=== PATIENT | male | born 1960 ===

== ENCOUNTER 2018-01-02 12:00 | Inpatient (IN) | payer OTHER ==
[~2018-01-02] VITALS: Ht 175.3 cm; Wt 89.4 kg
[2018-01-09] VITALS (16 sets, daily range): BP systolic 101–137; BP diastolic 53–80
[2018-01-09] MEDS ORDERED: EXFORGE 10-3201 EACH ORAL (06:08)
[2018-01-09] MEDS ORDERED: PANTOPRAZOLE SO40 MG ORAL (06:08)
[2018-01-09] MEDS ORDERED: CRESTOR10 M2 ORAL (06:08)
[2018-01-09] MEDS ORDERED: MELOXICAM15 MG PO (06:08)
[2018-01-09] MEDS ORDERED: LYRICA75 M1 ORAL (06:08)
[2018-01-09] MEDS ORDERED: BIKTARVY 50-201 EACH PO (06:08)
[2018-01-09] MEDS ORDERED: Midazolam 2mg/2ml Inj ONE ×2 (06:56→10:27)
[2018-01-09] MEDS ORDERED: fentaNYL 100 mcg/2 mL IV ONE (06:56)
[2018-01-09] MEDS ORDERED: Lidocaine 1% MPF 10mg/ml 5ml ONE (06:57)
[2018-01-09] MEDS ORDERED: Zemuron 50mg/5ml Inj IV ONE (07:05)
[2018-01-09] MEDS ORDERED: Succinylcholine 20mg/ml 10ml vial ONE (07:05)
--- NOTE | 2018-01-09 07:15 | Pre-Procedure Note/Attestation ---
Pre-Procedure Note/Attestation Complete Prior to Procedure Procedure Narrative: Artificial disc replacement C4/5 vs ACDF C4/5. Indications for Procedure Pre-Operative Diagnosis: stenosis C4/5 Attestation I attest that I discussed the nature of the procedure; its benefits; risks and complications; and alternatives (and the risks and benefits of such alternatives ), prior to the procedure, with the patient (or the patient's legal associate sales representative). I attest that, if there was a reasonable possibility of needing a blood transfusion, the patient (or the patient's legal associate sales representative) was given the [facility] standardized written summary, pursuant to the Atilio Kike Blood Safety Act ([place] Health and Safety Code # 1645, as amended). I attest that I re-evaluated the patient just prior to the surgery and that there has been no change in the patient's H&P, except as documented below:no changes. Tang Lord MD Jan 09, 2018 07:15
--- NOTE | 2018-01-09 07:16 | Brief Operative Note ---
Immediate Post Operative Note Operative Note Pre-op Diagnosis: stenosis C4/5 Procedure: ADR C4/5 with revision approach to spine anteriorly Post-op Diagnosis: same as preop Findings: consistent w/pre-op dx studies Surgeon: darian Assistant Site Manager: misha Anesthesiologist: Hawk FISCHER Anesthesia: general Specimen: yes Complications: none Condition: stable Fluids: per anesthesia Estimated Blood Loss: minimal Implant(s) used?: Yes - Tang Garzon MD Jan 09, 2018 07:16
[2018-01-09] MEDS ORDERED: Thrombin 5000 units spray kit TOPIC ONE (07:22)
[2018-01-09] MEDS ORDERED: Thrombin 5000 units TOPIC ONE (07:23)
[2018-01-09] MEDS ORDERED: Gelfoam Absorbable 1gm powder pkt TOPIC ONE (07:23)
[2018-01-09] MEDS ORDERED: Bacitracin 50000 Units Vial ONE (07:23)
[2018-01-09] MEDS ORDERED: Gelfoam Size TOPIC ONE (07:23)
[2018-01-09] MEDS ORDERED: Sterile Water For Irrig 2000ml IRRIG ONE (07:30)
[2018-01-09] MEDS ORDERED: NS Irrig 1000ml ONE (07:30)
[2018-01-09] MEDS ORDERED: Ketorolac 30mg Inj ONE (07:30)
[2018-01-09] MEDS ORDERED: LR 1000ml ONE (07:30)
[2018-01-09] MEDS ORDERED: Propofol 1,000mg/ 100ml btl IV ONE (07:30)
[2018-01-09] MEDS ORDERED: Neostigmine 1mg/ml 10ml Inj ONE (07:30)
[2018-01-09] MEDS ORDERED: Dexamethasone 4mg/ml vial ONE (08:13)
[2018-01-09] MEDS ORDERED: Morphine Sulfate 10mg/ml Inj ONE (08:20)
[2018-01-09] MEDS ORDERED: Sodium Chloride 10ml vial INJ ONE (08:22)
[2018-01-09] MEDS ORDERED: Phenylephrine 10mg/ml Vial ONE (08:27)
[2018-01-09] MEDS ORDERED: LR 1000ml 1,000 ML IVLG SCH (09:13)
--- NOTE | 2018-01-09 09:13 | Anethesia Preoperative Eval ---
Anesthesia Pre-op PMH/ROS General Date of Evaluation: Jan 09, 2018 Time of Evaluation: 07:20 Anesthesiologist: Hawk ASA Score: ASA 2 Mallampati Score Class I : Soft palate, uvula, fauces, pillars visible Class II: Soft palate, uvula, fauces visible Class III: Soft palate, base of uvula visible Class IV: Only hard plate visible Mallampati Classification: Class II Surgeon: Risa Diagnosis: Cervical radiculopathy Surgical Procedure: ACDF C4-C5 Anesthesia History: emergence delirium Family History: no anesthesia problems Allergies: Coded Allergies: MEPERIDINE (Verified Allergy, Severe, 01/08/18) PT GOES BERSERK-PULLS IV Uncoded Allergies: ANESTHESIA (Allergy, Severe, 01/08/18) PT GOES BERSERK-PULLS IV Medications: see eMAR Past Medical History Cardiovascular: Reports: HTN - stable on meds Pulmonary: Denies: asthma, COPD, RON, other Gastrointestinal/Genitourinary: Denies: GERD, CRI, ESRD, other Neurologic/Psychiatric: Reports: depression/anxiety, other - chronic pain; Denies: dementia, CVA, TIA Endocrine: Denies: DM, hypothyroidism, steroids, other HEENT: Denies: cataract (L), cataract (R), glaucoma, [place] (L), [place] (R), other Hematology/Immune: Denies: anemia, DVT, bleeding disorder, other Musculoskeletal/Integumentary: Denies: OA, RA, DJD, DDD, edema, other PMH Narrative: as above PSxH Narrative: Appendectomy, Lumbar spine, Cervical spine fusion Anesthesia Pre-op Phys. Exam Physician Exam Last Vital Signs Date Time Temp Pulse Resp B/P (MAP) Pulse Ox O2 Delivery O2 Flow Rate FiO2 01/09/18 06:02 98.0 73 20 119/62 (81) 97 98.0 01/09/18 05:49 Room Air Constitutional: NAD Neurologic: CN 2-12 intact Cardiovascular: RRR, no M/R/G Respiratory: CTA Gastrointestinal: S/NT/ND Airway Exam Mallampati Score: Class II MO: full Neck: stiff ROM: limited Teeth: intact Dentures: no upper, no lower Anesthesia Pre-op A/P Labs see chart Studies Pre-op Studies: EKG - NSR, CXR - WNL, echo - EF 55-60% Risk Assessment & Plan Assessment: ASA 2 Plan: GA with ETT neuromonitoring Status Change Before Surgery: No Pre-Antibiotics Drug: Ancef 2gr. Given Within 1 Hr of Incision: Yes Time Given: 08:10 Fili Arechiga MD Jan 09, 2018 09:13
[2018-01-09] MEDS ORDERED: fentaNYL 100 mcg/2 mL IV PRN (09:15)
[2018-01-09] MEDS ORDERED: Morphine Sulfate 2mg/ml Inj IVP PRN (09:15)
[2018-01-09] MEDS ORDERED: DiphenhydrAMINE 50mg/ml Inj IVP PRN (09:15)
[2018-01-09] MEDS ORDERED: Midazolam 2mg/2ml Inj IVP PRN (09:15)
[2018-01-09] MEDS ORDERED: Ketorolac 30mg Inj IV PRN (09:15)
[2018-01-09] MEDS ORDERED: Glycopyrrolate 0.2mg/ml 1ml Vial ONE (10:02)
[2018-01-09] MEDS ORDERED: Acetaminophen (Non formulary) 100 ML IV ONE (10:15)
[2018-01-09] MEDS ORDERED: Propofol 200mg/20ml IV ONE (10:37)
[2018-01-09] MEDS ORDERED: HYDROmorphone 1mg/ml Carpuject IVP PRN (11:00)
[2018-01-09] MEDS ORDERED: Norco 5mg/325mg tab ORAL PRN (11:00)
--- NOTE | 2018-01-09 11:53 | Immediate Post-Op Evaluation ---
Immediate Post-Op Evalulation Immediate Post-Op Evalulation Procedure: ACDF C4-C5 Date of Evaluation: Jan 09, 2018 Time of Evaluation: 11:46 IV Fluids: 1400 Blood Products: none Estimated Blood Loss: 100 Urinary Output: 500 Blood Pressure Systolic: 116 Blood Pressure Diastolic: 58 Pulse Rate: 78 Respiratory Rate: 24 O2 Sat by Pulse Oximetry: 96 Temperature (Fahrenheit): 98.5 Pain Score (1-10): 2 Nausea: No Vomiting: No Complications none Patient Status: reacts, patent, none Hydration Status: adequate Fili Arechiga MD Jan 09, 2018 11:53
[2018-01-09] MEDS ORDERED: Artificial Tears 1.4% Op Soln BOTH EYES PRN (12:45)
--- NOTE | 2018-01-09 12:57 | 48 Hour Post Anesthesia Eval ---
Post Anesthesia Evaluation Procedure: ACDF C4-C5 Date of Evaluation: Jan 09, 2018 Time of Evaluation: 12:55 Blood Pressure Systolic: 122 0: 68 Pulse Rate: 72 Respiratory Rate: 22 Temperature (Fahrenheit): 97.8 O2 Sat by Pulse Oximetry: 97 Airway: patent Nausea: No Vomiting: No Pain Intensity: 2 Hydration Status: adequate Cardiopulmonary Status: stable Mental Status/LOC: patient returned to baseline Follow-up Care/Observations: n/a Post-Anesthesia Complications: none Follow-up care needed: ready to discharge Fili Arechiga MD Jan 09, 2018 12:56
[2018-01-09] MEDS ORDERED: D5 1/2NS w/KCl 20mEq 1,000 ML IV SCH (14:00)
[2018-01-09] MEDS ORDERED: ceFAZolin sod 1 GM in D5W 55 ML IV SCH (16:00)
[2018-01-09] MEDS ORDERED: Docusate 100mg cap ORAL SCH (18:00)
--- NOTE | 2018-01-10 00:15 | Operative Note - Dictated ---
DATE OF OPERATION: 01/09/2018 PREOPERATIVE DIAGNOSES: 1. Adjacent segment spondylosis with aggravation. 2. C5 stenosis. 3. Cervical central canal stenosis C4-C5 with aggravation of stenosis. 4. Cervical radiculopathy. 5. Status post prior ACDF performed elsewhere C5-6 and C6-7. 6. Disc protrusion at C7-T1 and disc protrusion at C2-3. 7. More symptomatic level C4-5. POSTOPERATIVE DIAGNOSES: 1. Adjacent segment spondylosis with aggravation. 2. C5 stenosis. 3. Cervical central canal stenosis C4-C5 with aggravation of stenosis. 4. Cervical radiculopathy. 5. Status post prior ACDF performed elsewhere C5-6 and C6-7. 6. Disc protrusion at C7-T1 and disc protrusion at C2-3. 7. More symptomatic level C4-5. PROCEDURES PERFORMED: 1. Anterior cervical discectomy, decompression, foraminotomy, and disc replacement C4-5. 2. Interpretation of neuromonitoring. SURGEON: Tang Lord M.D. CANVAS SHRINKER: Dr. Gold . ANESTHESIOLOGIST: Fili Arechiga M.D. ANESTHESIA: General endotracheal combined anesthetic. Neuromonitoring utilized during surgery. IMPLANTS: Mobi-C artificial disc replacement. INTRAOPERATIVE FINDINGS: Significant stenosis noted with improvement in SSEPs in the left upper extremity as documented by the SSEP utility technician. Good fitment of artificial disc replacement C4-5. COMPLICATIONS: None. INDICATIONS FOR PROCEDURE: This is a pleasant gentleman with a significant injury to the cervical spine with history of prior spine surgery doing relatively well. The patient also had a spondylolisthesis in the lumbar spine, which will be addressed at another time. The patient is doing well and had a significant injury and had aggravation of his relatively stable cervical spondylosis at C4-5. The patient had increasing symptomatology and pain from the C4-5 level. MRIs were consistent with the patient's symptomatic complaints as well as objective orthopedic testing. Stenosis was noted left greater than right at C5 with mild central canal stenosis, however, significant lateral recess stenosis that was moderate to [id number] in nature on the left side especially. The patient was indicated for surgery after reasonable amount of conservative treatment had been tried by the patient. No guarantees of outcome were given. The patient was made aware of the alternatives to surgery as well as few types of surgery that I discussed including an ACDF versus an artificial disc replacement. The artificial disc replacement will be planned for and ACDF as a backup in case artificial disc replacement was not able to be fit into the disc space at C4-5. The patient was preoperatively medically optimized, taken to the operating room, and intubated by the anesthesiologist after positive identification and appropriate markings on the cervical spine. The patient was positioned supine with the cervical spine to be approached from the right side. A previous incision was on the right side that was going to be the same approach. Of note, this was a revision surgery and the exposure was riskier due to the previous surgery and a previously unoperated cervical spine anteriorly. However, with careful blunt dissection, I was able to expose the cervical spine carefully and obtain an excellent approach to the C4-5 level. The cervical spine baselines were obtained prior to positioning both motor and SSEPs, and subsequently after gentle cervical extension, baselines were obtained again. There was no change in baselines. Baseline demonstrated left upper extremity diminution. Once the post positioning baselines were obtained, the right side approach was planned. Markings were made on the cervical spine. Arms were tucked into proper position with all bony prominences well padded. was padded. Neuromonitoring was attached in upper and lower extremities. The neck was prepped and draped in usual sterile fashion. Subsequently, incision was made and skin was incised. Incision was on the right side. As mentioned, the interval of the omohyoid and sternocleidomastoid was identified, bluntly dissected with Metzenbaum scissors, and the scar tissue was identified and gently dissected with Kittner and Metzenbaum scissors. The carotid pulsation was normal. Visceral structures were contralaterally retracted. The prevertebral fascia was identified and pinned and subsequently exposed. The C4-5 level was identified, and using Bovie on low current, the longus colli was elevated medially and laterally and [place] pins as well as self-retaining retractors were placed. Extreme care was taken to maintain optimal midline positioned by taking multiple x-rays with a single [place] position in C4, and once this was satisfactorily judged to be in the midline, I placed a second [place] pin distractor at C5 and exposed the C4-5 level with direct visualization in the microscope. With microscope direct visualization and illumination, I performed a radical discectomy, removed endplate cartilage as well as shaved the contour of the posterior vertebral edges of C4 and C5 to be able to obtain a better fitment for the artificial disc replacement. PLL was resected. Generous foraminotomy was performed and the spinal cord was also decompressed. Left side was significantly worse than the right side as expected. There is a disc herniation that was caudally migrated just to the border of the C5 vertebral body. This was removed using Microsect micro curettes, and once this was performed, the dura was decompressed and foraminotomies were generously performed without moving excessive vertebral body and endplate to not compromise the integrity of the disc replacement. Multiple different trials were placed and care was taken to contour the uncovertebral joints as well as the endplate to accept the artificial disc replacement. This was tedious, and using careful carpentry, I was able to shave down the platform where disc replacement was to be placed and multiple different trials were used. The best fitment was a 5 mm height, 19 mm wide, and 15 mm deep artificial disc replacement and this was tried and subsequently the artificial disc replacement was implanted using direct visualization as well as radiographic images. Tried to be as careful as possible and as precise as possible trying to place the artificial disc replacement in perfect position and I tried to take care to adjudge perfect lateral of the cervical spine as well as the perfect anteroposterior view with Tinoco views. The artificial disc replacement was placed, tactile feedback was noted to have good fitment and on x-rays were in good position. The wound was copiously irrigated. Final x-rays were taken to assess for midline. Once this was satisfactorily adjudged, the [place] pins were gently compressed to increase fitment and prevent dislodgement of the artificial noel replacement and removed and wax was placed for hemostasis. Wound was copiously irrigated multiple times during the procedure. Subsequently, the wound was reapproximated using 3-0 Vicryl for the platysma, 4-0 Monocryl for the skin, as well as Steri-Strips. COMPLICATIONS: None. DISPOSITION: To recovery room in stable condition. Tang Lord M.D. DR: TONEY JOB#: [id number] CC:
--- NOTE | 2018-01-10 06:22 | Discharge Summary ---
Discharge Summary Discharge Summary _ DATE OF ADMISSION: 01/09/2018 DATE OF DISCHARGE: 01/09/2018 BRIEF HOSPITAL COURSE: Patient is a 57-year-old male, with significant injury to the cervical spine with history of prior surgery doing relatively well. Patient also had spondylolisthesis in the lumbar spine. He had significant injury and aggravation of a relatively stable cervical spondylolisthesis at C4-C5. He had increasing symptomatology and pain. MRI done were consistent with patient's symptomatic complaints as well as objective orthopedic testing. Stenosis was noted left greater than right at C5 with mild central canal stenosis, however, significant lateral recess stenosis that was moderate to severe in nature. He had tried a reasonable amount of conservative treatment, patient was indicated for surgery. He was admitted and underwent anterior cervical discectomy, decompression, foraminotomy and disc replacement on C4-C5. He tolerated procedure well and postoperatively was admitted for postop care. He was given IV hydration. He was given pain management. He was placed on MEAGAN hose and SCDs for DVT prophylaxis. He was encouraged use of incentive spirometry. Antunez catheter was discontinued. He underwent physical and occupational therapy. Diet was advanced. He was voiding well and ambulating well with good pain control. He was eventually discharged home. FINAL DIAGNOSES: Adjacent segment spondylosis with aggravation C5 stenosis Cervical central canal stenosis C4-C5 with aggravation of stenosis Cervical radiculopathy Status post prior ACDF performed elsewhere C5-C6 and C6-C7 Disc protrusion at C7-T1 and disc protrusion at C2-C3 More symptomatic level C4-C5 Status post anterior cervical discectomy, decompression, foraminotomy and disc replacement and C4-C5 DISPOSITION: Patient was discharged home. DISCHARGE MEDICATIONS: Refer to Discharge Medication List. To take ciprofloxacin by mouth as outpatient. DISCHARGE INSTRUCTIONS: Follow up in 1 to 2 weeks. I have been assigned to dictate discharge summary on this account, and I was not involved in the patient's management. Italia De La Cruz NP Jan 10, 2018 06:22
== END 2018-01-09 17:15 | disposition home or self-care (01) | DRG 518 ==
LOC: SDSOVERFLO 01-09 05:16 → 3E 01-09 13:00
PROC: 00NW0ZZ Release Cervical Spinal Cord, Open Approach (ICD-10-PCS; principal; 2018-01-09 07:30)
PROC: 0RR30JZ Replacement of Cervical Vertebral Disc with Synthetic Substitute, Open Approach (ICD-10-PCS; principal; 2018-01-09 07:30)
PROC: 01N10ZZ Release Cervical Nerve, Open Approach (ICD-10-PCS; principal; 2018-01-09 07:30)
DX: M50.11 Cervical disc disorder with radiculopathy, high cervical region (principal); B20 Human immunodeficiency virus [HIV] disease; M48.02 Spinal stenosis, cervical region; M47.812 Spondylosis without myelopathy or radiculopathy, cervical region; Z98.1 Arthrodesis status; V89.2XXS Person injured in unspecified motor-vehicle accident, traffic, sequela; E78.00 Pure hypercholesterolemia, unspecified; J45.909 Unspecified asthma, uncomplicated; I10 Essential (primary) hypertension
CPT/HCPCS: 36415; 72040; 76001; 86850; 86900; 86901; 87081; 94003; 94150; J2250; J2370; J2710